=== PATIENT | female | born 1935 | race Caucasian/White ===

== ENCOUNTER 2016-11-16 08:29 | Emergency (ER) | payer OTHER, MEDICARE ==
[~2016-11-16] VITALS: Ht 160 cm; Wt 70.5 kg
[~2016-11-16 08:29] MED LIST: ASCA500 PO; CYAN500T PO; CZR25 PO; GING1CAP PO; IBUP-1050 PO; LANS15CA6 PO; OLIV1OIL5 PO; TURM1CAP2 PO; VITA1CAP5 PO
[2016-11-16 08:32] VITALS: TEMP 36.4; Ht 160 cm; Wt 70.5 kg
--- NOTE | 2016-11-16 09:23 | DIAGNOSTIC IMAGING REPORT ---
CHEST ONE VIEW PORTABLE HISTORY: Atypical chest pain COMPARISON: Chest 08/11/2015. FINDINGS: The lungs are clear. Cardiac silhouette is normal in size. No pleural effusions. No pneumothorax. IMPRESSION: No acute process. Electronically signed by: Bernard Benson M.D. 11/16/2016 9:22 AM Dictated Date/Time: 11/16/2016 9:19 AM
[2016-11-16 09:24] LABS: MEAN CELL VOLUME 91.1 fL (80-100); MEAN CORPUSCULAR HEMOGLOBIN 31.2 pg (25-34); MEAN CORPUSCULAR HGB CONC 34.2 g/dl (32-36); MEAN PLATELET VOLUME 10.3 fL (7.4-10.4); PLATELET COUNT 283 K/uL (130-400); RED BLOOD COUNT 4.17 M/uL (4.2-5.4); WHITE BLOOD COUNT 4.21 K/uL (4.8-10.8)
[2016-11-16 09:33] LABS: PROTHROMBIN TIME (PATIENT) 10.2 SECONDS (9.0-12.0)
[2016-11-16] MEDS ORDERED: SUCRALFATE 1 GM TAB PO STA (09:37)
[2016-11-16] MEDS ORDERED: GI COCKTAIL PO STA (09:37)
[2016-11-16 09:39] LABS: BUN/CREATININE RATIO 13.2 (10-20); CREATININE 0.82 mg/dl (0.60-1.20); POTASSIUM 4.4 mmol/L (3.5-5.1)
[2016-11-16] MEDS ORDERED: FAMOTIDINE 20 MG TAB PO ONE (09:45)
[2016-11-16] MEDS ORDERED: ACET-1175 PO (09:55)
--- NOTE | 2016-11-16 10:01 | EMERGENCY ROOM VISIT NOTE ---
History Report prepared by Narcisa: Alin Enrique Under the Supervision of: Dr. Bradley Chauhan M.D. First contact with patient: 09:14 Chief Complaint: CARDIAC ASSESSMENT Stated Complaint: CARDIAC ASSESSMENT Nursing Triage Summary: pt to the ED with left sided chest pain no dizziness no n/v History of Present Illness The patient is a 81 year old female who presents to the Emergency Room with complaints of constant chest pain starting around 0300 this morning. She currently rates her discomfort as a 4.5/10 in severity. The patient states that she woke up at 0300 with chest pain and abdominal pain so she ate come peaches, yogurt, and goats milk, and the pain persisted. The patient additionally complains of abdominal pain starting the same time, and she states that this has been going on for many years. The patient states that she has been scoped three different times, and nothing has been found. The patient states that she takes Prilosec, and this has not helped. The patient additionally states that she has a pinched nerve in her neck. Source of History: patient Onset: 0300 Position: chest Symptom Intensity: 4.5/10 Timing: constant Associated Symptoms: + abdominal pain Review of Systems See HPI for pertinent positives & negatives. A total of 10 systems reviewed and were otherwise negative. Past Medical & Surgical Medical Problems: (1) GERD (gastroesophageal reflux disease) (2) hemrrhoids (3) Pneumonia (4) ulcers Family History Cancer Gallbladder disease Hypertension Social History Smoking Status: Never Smoker Drug Use: none Marital Status: Housing Status: lives with family Occupation Status: unemployed Current/Historical Medications Scheduled Acetaminophen (Tylenol), 650 MG PO TID Ascorbic Acid (Vitamin C), 500 MG PO DAILY Cyanocobalamin (Vitamin B-12), 500 MCG PO DAILY Radha (Zingiber Officinalis) (Radha), 1 CAP PO DAILY Lansoprazole (Prevacid), 15 MG PO DAILY [place] Oil (Fairview Oil), 1 DOSE PO BID Allergies Coded Allergies: Latex1 -Allergic Contact Dermititis (Verified Allergy, Intermediate, RASH , 11/16/16) Caffeine (Unverified Allergy, Mild, 11/16/16) Clavulanic Acid (Unverified Allergy, Mild, 11/16/16) Gabapentin (Unverified Allergy, Mild, 11/16/16) Methadone (Unverified Allergy, Mild, 11/16/16) Niacin (Unverified Allergy, Mild, 11/16/16) Nitrates, Organic (Unverified Allergy, Mild, RASH, 11/16/16) Nitrofurantoin (Unverified Allergy, Mild, RASH, 11/16/16) Quinolones (Unverified Allergy, Mild, 11/16/16) Simvastatin (Unverified Allergy, Mild, 11/16/16) Tomato (Unverified Allergy, Mild, 11/16/16) Apple (Verified Allergy, Unknown, RASH, 11/16/16) Grass (Verified Allergy, Unknown, POLLEN,TREES,GALLOWAY, STRONG PERFUMES, ) [place] (Verified Allergy, Unknown, RASH, 11/16/16) [place] (Verified Allergy, Unknown, RASH, 11/16/16) Sulfa Drugs (Verified Allergy, Unknown, RASH, 11/16/16) Sulfamethoxazole (Verified Allergy, Unknown, RASH, 11/16/16) Penicillins (Unverified Adverse Reaction, Mild, YEAST INFXN; "CAN TAKE PENICILLIN IN LOW DOSES", 11/16/16) Uncoded Allergies: BETALACTAMASEIN (Allergy, Mild, 11/06/09) METAL (Allergy, Mild, 10/06/07) Physical Exam Vital Signs Date Time Temp Pulse Resp B/P Pulse Ox O2 Delivery O2 Flow Rate FiO2 11/16/16 12:38 71 18 167/81 11/16/16 11:00 66 18 186/83 98 Room Air 11/16/16 08:57 69 11/16/16 08:55 72 169/131 98 11/16/16 08:37 95 Room Air 11/16/16 08:32 36.4 85 18 155/74 95 Room Air Physical Exam GENERAL: Patient is a healthy-appearing well-nourished HEAD: Normocephalic atraumatic EYES: Ocular movements intact pupils equal and react to light OROPHARYNX mucous membranes are moist no exudates present no erythema or edema present NECK: Supple no nuchal rigidity CHEST: Good equal expansion LUNGS: Clear and equal to auscultation CARDIAC: Normal S1 and S2 ABDOMEN: Soft nontender no guarding BACK: No CVA tenderness EXTREMITIES: No pain upon palpation normal muscle strength in all groups no clubbing cyanosis or edema NEURO: Patient is following commands is answering questions appropriately. Alert and oriented x3 Cranial Nerves 2-12 grossly intact Medical Decision & Procedures ER Provider Diagnostic Interpretation: X-ray results as stated below per interpretation by me and the radiologist: CHEST ONE VIEW PORTABLE HISTORY: Atypical chest pain COMPARISON: Chest 08/11/2015. FINDINGS: The lungs are clear. Cardiac silhouette is normal in size. No pleural effusions. No pneumothorax. IMPRESSION: No acute process. Electronically signed by: Bernard Benson M.D. 11/16/2016 9:22 AM Laboratory Results 11/16/16 09:13 11/16/16 09:13 Test 11/16/16 09:13 11/16/16 09:18 Red Blood Count 4.17 M/uL (4.2-5.4) Mean Corpuscular Volume 91.1 fL (80-100) Mean Corpuscular Hemoglobin 31.2 pg (25-34) Mean Corpuscular Hemoglobin Concent 34.2 g/dl (32-36) RDW Standard Deviation 44.5 fL (36.4-46.3) RDW Coefficient of Variation 13.5 % (11.5-14.5) Mean Platelet Volume 10.3 fL (7.4-10.4) Prothrombin Time 10.2 SECONDS (9.0-12.0) Prothromb Time International Ratio 1.0 (0.9-1.1) Activated Partial Thromboplast Time 25.9 SECONDS (21.0-31.0) Partial Thromboplastin Ratio 1.0 Anion Gap 9.0 mmol/L (3-11) Est Creatinine Clear Calc Drug Dose 49.8 ml/min Estimated GFR () 77.2 Estimated GFR (Non- 66.6 BUN/Creatinine Ratio 13.2 (10-20) Calcium Level 9.0 mg/dl (8.5-10.1) Total Bilirubin 0.5 mg/dl (0.2-1) Aspartate Amino Transf (AST/SGOT) 21 U/L (15-37) Alanine Aminotransferase (ALT/SGPT) 28 U/L (12-78) Alkaline Phosphatase 71 U/L (45-117) Total Creatine Kinase 45 U/L (26-192) Creatine Kinase MB 0.9 ng/ml (0.5-3.6) Creatine Kinase MB Ratio 2.0 (0-3.0) Total Protein 7.3 gm/dl (6.4-8.2) Albumin 3.7 gm/dl (3.4-5.0) Globulin 3.6 gm/dl (2.5-4.0) Albumin/Globulin Ratio 1.0 (0.9-2) Bedside Troponin I 0.010 ng/ml (0-0.045) Labs reviewed by ED physician. Medications Administered Medications (Trade) Dose Ordered Sig/Kyung Route Start Time Stop Time Status Last Admin Dose Admin Famotidine (Pepcid Tab) 20 mg NOW ONCE PO 11/16/16 09:45 11/16/16 09:46 DC 11/16/16 10:09 20 MG Sucralfate (Carafate Tab) 1 gm NOW STAT PO 11/16/16 09:37 11/16/16 09:38 DC 11/16/16 10:10 1 GM Miscellaneous Medication (Gi Cocktail) 24 ml NOW STAT PO 11/16/16 09:37 11/16/16 09:38 DC 11/16/16 10:16 24 ML ECG Indication: chest pain Rate (beats per minute): 76 Rhythm: normal sinus Findings: LBBB Comparison ECG Date: 03/13/16 Change: no significant change ED Course 0914: Past medical records reviewed. The patient was evaluated in room C1. A complete history and physical examination was performed. 0937: GI Cocktail 24ml PO, Carafate Tab 1gm PO 0945: Pepcid Tav 20mg PO 1232: Upon reexamination the patient is feeling better. I discussed results and treatment plan with the patient. She verbalizes agreement and understanding. The patient is ready for discharge. Medical Decision Differential diagnosis: Etiologies such as cardiac ischemia, aortic dissection, pulmonary embolism, pneumonia, pneumothorax, musculoskeletal, infections, pericarditis, myocarditis , esophageal rupture, gastrointestinal, as well as others were entertained. This is an 81-year-old female who presents emergency Department with epigastric pain that has been ongoing for months. The patient relates the pain to eating. She has been scoped in the past and feels that this is similar to those incidents. For this reason the patient was given a GI cocktail, Pepcid, Carafate. Repeat examination revealed improvement patient's symptoms. Impression Primary Impression: GERD (gastroesophageal reflux disease) Scribe Attestation The scribe's documentation has been prepared under my direction and personally reviewed by me in its entirety. I confirm that the note above accurately reflects all work, treatment, procedures, and medical decision making performed by me. Departure Information Dispostion Home / Self-Care Referrals Alex Bates M.D. (PCP) Forms IMPORTANT VISIT INFORMATION Patient Instructions Acid Reflux, ED Diet Clear Liquid, My [facility] Additional Instructions Follow up with gastroentrologist Dr Rodriguez Clear liquid diet next 48 hours Take 5 ml Maalox before every meal and at bedtime You have been examined and treated today on an emergency basis only. This is not a substitute for, or an effort to provide, complete comprehensive medical care. It is impossible to recognize and treat all injuries or illnesses in a single emergency department visit. It is therefore important that you follow up closely with Dr Bates. Call as soon as possible for an appointment. Thank you for your time and consideration. I look forward to speaking with you again soon. Please don't hesitate to call us if you have any questions. Problem Qualifiers Primary Impression: GERD (gastroesophageal reflux disease) Esophagitis presence: with esophagitis Qualified Codes: K21.0 - Gastro- esophageal reflux disease with esophagitis
[2016-11-16] MEDS ORDERED: ALUMINUM/MAGNESIUM SUSP 30 ML UDC ONE (10:02)
[2016-11-16] MEDS ORDERED: LIDOCAINE HCL 2% VISC SOLN 20 ML UDC ONE (10:02)
[2016-11-16] MEDS ORDERED: ONDANSETRON INJ 2 MG/ML 2 ML VIAL IV STA (10:22)
[2016-11-16] MEDS ORDERED: MoRPHine SULFATE 4 MG/ML 1 ML CARP\\VIAL IV STA (10:22)
[2016-11-16 11:00] VITALS: O2SAT 98
[2016-11-16 12:38] VITALS: BP 167/81; PULSE 71
[2016-12-07] MEDS ORDERED: ALUMSUS2 PO (10:07)
[2017-01-19] MEDS ORDERED: PSEU30TA20 PO (14:22)
== END 2016-11-16 12:40 | disposition home or self-care (01) ==
LOC: C.EDB 08:32 → C.EDC 12:40
DX: K21.9 Gastro-esophageal reflux disease without esophagitis (principal); R10.13 Epigastric pain; I44.7 Left bundle-branch block, unspecified; Z79.899 Other long term (current) drug therapy; Z88.0 Allergy status to penicillin; Z88.2 Allergy status to sulfonamides; Z88.8 Allergy status to other drugs, medicaments and biological substances; Z91.040 Latex allergy status; Z80.9 Family history of malignant neoplasm, unspecified; Z83.79 Family history of other diseases of the digestive system; Z82.49 Family history of ischemic heart disease and other diseases of the circulatory system

== ENCOUNTER 2016-12-01 23:56 | Emergency (ER) | payer OTHER, MEDICARE ==
[~2016-12-01] VITALS: Ht 160 cm; Wt 69.9 kg
[~2016-12-01 23:56] MED LIST changes: +ACET-1175 PO; -CZR25 PO; -IBUP-1050 PO; -TURM1CAP2 PO; -VITA1CAP5 PO
[2016-12-01 23:57] VITALS: TEMP 36.8; Ht 160 cm; Wt 69.9 kg
[2016-12-02] MEDS ORDERED: ONDANSETRON 4MG OD TAB PO STA (00:11)
[2016-12-02] MEDS ORDERED: GI COCKTAIL PO STA (00:11)
[2016-12-02] MEDS ORDERED: FAMOTIDINE 20 MG TAB PO ONE (00:15)
--- NOTE | 2016-12-02 00:18 | EMERGENCY ROOM VISIT NOTE ---
History Report prepared by Narcisa: Fanny Acosta Under the Supervision of: Dr. Eamon Win M.D. 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 The patient has been experiencing nausea, vomiting, and diarrhea for the past 7 hours. She states that after vomiting she developed some central chest pain. The patient rates her pain as an 8/10 in severity. She has a history of GERD and takes Prevacid BID and Nexium. She has not had an endoscopy in the past 20 years. She states that tonight's symptoms feel similar to previous episodes of exacerbation of her GERD. She tried taking Maalox and drinking gingerale without any relief of her symptoms. She reports some pain that is worse with swallowing. The patient denies shortness of breath, black or bloody stools, swelling in her legs, and any recent trauma or falls. She denies any sick contacts. The patient reports some stress recently. Tomorrow is the 2 year anniversary of her 's . 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 A total of 10 systems reviewed and were otherwise negative. Past Medical & Surgical Medical Problems: (1) GERD (gastroesophageal reflux disease) (2) hemrrhoids (3) Pneumonia (4) ulcers Family History Cancer Gallbladder disease Hypertension Social History Smoking Status: Never Smoker Drug Use: none Marital Status: Housing Status: lives with family Occupation Status: unemployed Current/Historical Medications Scheduled Acetaminophen (Tylenol), 650 MG PO TID Ascorbic Acid (Vitamin C), 1,000 MG PO DAILY Cyanocobalamin (Vitamin B-12), 500 MCG PO DAILY Radha (Zingiber Officinalis) (Radha), 1 CAP PO DAILY Lansoprazole (Prevacid), 15 MG PO DAILY Losartan Potassium (Losartan Potassium), 25 MG PO DAILY [place] Oil (Archer Oil), 1 DOSE PO BID Pregabalin (Lyrica), 50 MG PO BID Ranitidine HCl (Ranitidine HCl), 150 MG PO HS Scheduled PRN Lidocaine Hcl (Mouth-Throat) (Lidocaine Viscous), 10 ML PO BID PRN for Pain Allergies Coded Allergies: Latex1 -Allergic Contact Dermititis (Verified Allergy, Intermediate, RASH , 12/02/16) Caffeine (Unverified Allergy, Mild, 12/02/16) Clavulanic Acid (Unverified Allergy, Mild, 12/02/16) Gabapentin (Unverified Allergy, Mild, 12/02/16) Methadone (Unverified Allergy, Mild, 12/02/16) Niacin (Unverified Allergy, Mild, 12/02/16) Nitrates, Organic (Unverified Allergy, Mild, RASH, 12/02/16) Nitrofurantoin (Unverified Allergy, Mild, RASH, 12/02/16) Quinolones (Unverified Allergy, Mild, 12/02/16) Simvastatin (Unverified Allergy, Mild, 12/02/16) Tomato (Unverified Allergy, Mild, 12/02/16) Apple (Verified Allergy, Unknown, RASH, 12/02/16) Grass (Verified Allergy, Unknown, POLLEN,TREES,GALLOWAY, STRONG PERFUMES, ) [place] (Verified Allergy, Unknown, RASH, 12/02/16) [place] (Verified Allergy, Unknown, RASH, 12/02/16) Sulfa Drugs (Verified Allergy, Unknown, RASH, 12/02/16) Sulfamethoxazole (Verified Allergy, Unknown, RASH, 12/02/16) Penicillins (Unverified Adverse Reaction, Mild, YEAST INFXN; "CAN TAKE PENICILLIN IN LOW DOSES", 12/02/16) Uncoded Allergies: BETALACTAMASEIN (Allergy, Mild, 11/06/09) METAL (Allergy, Mild, 10/06/07) Physical Exam Vital Signs Date Time Temp Pulse Resp B/P Pulse Ox O2 Delivery O2 Flow Rate FiO2 12/02/16 01:25 87 20 163/86 96 12/02/16 00:19 Room Air 12/02/16 00:10 80 12/01/16 23:57 36.8 92 20 141/85 100 Room Air Physical Exam GENERAL: Patient is well appearing and in minimal distress. HEENT: No acute trauma, normocephalic atraumatic, mucous membranes moist, no nasal congestion, no scleral icterus. NECK: No stridor, no adenopathy, no meningismus, trachea is midline. LUNGS: No dyspnea. Clear to auscultation and equal bilaterally. No wheeze, no rhonchi. HEART: Regular rate and rhythm. No murmurs, rubs, gallops appreciated. ABDOMEN: Soft with vague epigastric tenderness to palpation, bowel sounds positive, no masses appreciated, no peritonitis. BACK: No midline tenderness, no CVA tenderness EXTREMITIES: Normal motion all extremities, no cyanosis, no edema. NEUROLOGIC: Alert and oriented, no acute motor or sensory deficits, no focal weakness, cranial nerves grossly intact. SKIN: No rash, no jaundice, no diaphoresis. Medical Decision & Procedures ER Provider Diagnostic Interpretation: One view chest x-ray as interpreted by myself reveals poor inspiratory effort, no infiltrate, no pneumothorax, no effusion, similar to previous CXR. Laboratory Results 12/02/16 00:16 Red Blood Count 4.24, Mean Corpuscular Volume 90.1, Mean Corpuscular Hemoglobin 30.9, Mean Corpuscular Hemoglobin Concent 34.3, Mean Platelet Volume 10.5, Neutrophils (%) (Auto) 75.7, Lymphocytes (%) (Auto) 17.7, Monocytes (%) (Auto) 5.0, Eosinophils (%) (Auto) 1.4, Basophils (%) (Auto) 0.1, Neutrophils # (Auto) 7.55, Lymphocytes # (Auto) 1.77, Monocytes # (Auto) 0.50, Eosinophils # (Auto) 0.14, Basophils # (Auto) 0.01 12/02/16 00:16 Test 12/02/16 00:16 White Blood Count 9.98 K/uL (4.8-10.8) Red Blood Count 4.24 M/uL (4.2-5.4) Hemoglobin 13.1 g/dL (12.0-16.0) Hematocrit 38.2 % (37-47) Mean Corpuscular Volume 90.1 fL (80-100) Mean Corpuscular Hemoglobin 30.9 pg (25-34) Mean Corpuscular Hemoglobin Concent 34.3 g/dl (32-36) Platelet Count 277 K/uL (130-400) Mean Platelet Volume 10.5 fL (7.4-10.4) Neutrophils (%) (Auto) 75.7 % Lymphocytes (%) (Auto) 17.7 % Monocytes (%) (Auto) 5.0 % Eosinophils (%) (Auto) 1.4 % Basophils (%) (Auto) 0.1 % Neutrophils # (Auto) 7.55 K/uL (1.4-6.5) Lymphocytes # (Auto) 1.77 K/uL (1.2-3.4) Monocytes # (Auto) 0.50 K/uL (0.11-0.59) Eosinophils # (Auto) 0.14 K/uL (0-0.5) Basophils # (Auto) 0.01 K/uL (0-0.2) RDW Standard Deviation 42.8 fL (36.4-46.3) RDW Coefficient of Variation 13.0 % (11.5-14.5) Immature Granulocyte % (Auto) 0.1 % Immature Granulocyte # (Auto) 0.01 K/uL (0.00-0.02) Anion Gap 11.0 mmol/L (3-11) Est Creatinine Clear Calc Drug Dose 49.6 ml/min Estimated GFR () 77.2 Estimated GFR (Non- 66.6 BUN/Creatinine Ratio 17.0 (10-20) Calcium Level 8.8 mg/dl (8.5-10.1) Total Bilirubin 0.7 mg/dl (0.2-1) Aspartate Amino Transf (AST/SGOT) 22 U/L (15-37) Alanine Aminotransferase (ALT/SGPT) 26 U/L (12-78) Alkaline Phosphatase 70 U/L (45-117) Total Creatine Kinase 58 U/L (26-192) Creatine Kinase MB 1.0 ng/ml (0.5-3.6) Creatine Kinase MB Ratio 1.7 (0-3.0) Troponin I < 0.015 ng/ml (0-0.045) Total Protein 7.5 gm/dl (6.4-8.2) Albumin 4.0 gm/dl (3.4-5.0) Globulin 3.5 gm/dl (2.5-4.0) Albumin/Globulin Ratio 1.1 (0.9-2) Lipase 209 U/L (73-393) Laboratory results as reviewed by me. Medications Administered Medications (Trade) Dose Ordered Sig/Kyung Route Start Time Stop Time Status Last Admin Dose Admin Famotidine (Pepcid Tab) 20 mg NOW ONCE PO 12/02/16 00:15 12/02/16 00:16 DC 12/02/16 00:30 20 MG Ondansetron HCl (Zofran Odt) 4 mg NOW STAT PO 12/02/16 00:11 12/02/16 00:13 DC 12/02/16 00:29 4 MG Al Hydroxide/Mg Hydroxide (Maalox Susp) 30 ml STK-MED ONCE .ROUTE 12/02/16 00:24 12/02/16 00:27 DC 12/02/16 00:24 30 ML Lidocaine HCl (Viscous Lidocaine 2% Soln) 20 ml STK-MED ONCE .ROUTE 12/02/16 00:24 12/02/16 00:27 DC 12/02/16 00:24 20 ML Ondansetron HCl (ZOFRAN ODT 4MG Home Pack) 1 homepack UD ONCE PO 12/02/16 01:00 12/02/16 01:01 DC 12/02/16 01:14 1 HOMEPACK ECG Indication: chest pain Rate (beats per minute): 73 Rhythm: normal sinus Findings: LBBB, no acute ischemic change, no ectopy Comparison ECG Date: 11/16/2016 Change: no significant change ED Course 0006: The patient was evaluated in room B9. A complete history and physical exam was performed. 0011: Zofran 4 mg PO, GI Cocktail 24 ml PO 0015: Pepcid tab 20 mg PO 0051: I reassessed the patient at this time. She is feeling better and resting comfortably. She has had complete resolution of her symptoms. I discussed the results and treatment plan with the patient. I answered all pertaining questions that she had. She expressed understanding and verbalized agreement. The patient will be discharged home. 0100: Zofran 4 mg PO 1 homepack Medical Decision Differential: Cholecystitis, Gallbladder disfunction, Hepatic Disfunction, Gastritis/PUD, Pancreatitis, ACS, Aortic Pathology, amongst other pathologies entertained. 81 yr old female with long (>40yr) history of GERD which she arrives today stating she is having flare of. States identical to previous symptoms that have brought her to hospital. Makes clear this is not her heart. Current symptoms ongoing since yesterday afternoon, worsened by vomiting. 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 Has not had endoscopy (per her and daughter) in 20 years. She has complete resolution of symptoms with above. She is currently in no distress and feeling well. EKG, CXR, labs unremarkable. With normal Trop after prolonged symptoms I do not feel this represents ACS. 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 RTED if worsening or change in symptoms. No evidence of aortic, liver, nor other pathology. Impression Primary Impression: Gastritis Additional Impressions: GERD (gastroesophageal reflux disease) Vomiting Scribe Attestation The scribe's documentation has been prepared under my direction and personally reviewed by me in its entirety. I confirm that the note above accurately reflects all work, treatment, procedures, and medical decision making performed by me. Departure Information Dispostion Home / Self-Care Prescriptions Lidocaine Hcl (Mouth-Throat) (LIDOCAINE VISCOUS) 2 % Natalie 10 ML PO BID Y for Pain, #100 ML Prov: Eamon Win M.D. 12/02/16 Referrals Alex Bates M.D. (PCP) Forms HOME CARE DOCUMENTATION FORM, IMPORTANT VISIT INFORMATION Patient Instructions ED GERD, My [facility] Additional Instructions Please take two doses (one in morning, and one in evening) of your Nexium daily for the next 7 to 10 days. Follow up with your primary care provider and discuss follow up with Gastroenterology. Problem Qualifiers Primary Impression: Gastritis Gastritis type: unspecified gastritis Chronicity: chronic Gastritis bleeding: without bleeding Qualified Codes: K29.50 - Unspecified chronic gastritis without bleeding Additional Impressions: GERD (gastroesophageal reflux disease) Esophagitis presence: with esophagitis Qualified Codes: K21.0 - Gastro- esophageal reflux disease with esophagitis Vomiting Vomiting type: unspecified Vomiting Intractability: non-intractable Nausea presence: with nausea Qualified Codes: R11.2 - Nausea with vomiting, unspecified
[2016-12-02] MEDS ORDERED: LIDOCAINE HCL 2% VISC SOLN 20 ML UDC ONE (00:24)
[2016-12-02] MEDS ORDERED: ALUMINUM/MAGNESIUM SUSP 30 ML UDC ONE (00:24)
[2016-12-02 00:26] LABS: BASO % 0.1 %; BASO ABS # 0.01 K/uL (0-0.2); COMPLETE YES; EOS % 1.4 %; HEMATOCRIT 38.2 % (37-47); IG% 0.1 %; LYMPH % 17.7 %; LYMPH ABS # 1.77 K/uL (1.2-3.4); MEAN CELL VOLUME 90.1 fL (80-100); MEAN CORPUSCULAR HEMOGLOBIN 30.9 pg (25-34); MEAN CORPUSCULAR HGB CONC 34.3 g/dl (32-36); MEAN PLATELET VOLUME 10.5 fL (7.4-10.4); NEUT % 75.7 %; PLATELET COUNT 277 K/uL (130-400); RED BLOOD COUNT 4.24 M/uL (4.2-5.4); WHITE BLOOD COUNT 9.98 K/uL (4.8-10.8)
[2016-12-02 00:41] LABS: ALT/SGPT 26 U/L (12-78); AST/SGOT 22 U/L (15-37); BLOOD UREA NITROGEN 14 mg/dl (7-18); CALCIUM 8.8 mg/dl (8.5-10.1); CARBON DIOXIDE 26 mmol/L (21-32); CHLORIDE 99 mmol/L (98-107); CREATININE 0.82 mg/dl (0.60-1.20); GLUCOSE 114 mg/dl (70-99); POTASSIUM 3.7 mmol/L (3.5-5.1); SODIUM 136 mmol/L (136-145)
[2016-12-02 00:46] LABS: ALB/GLOB RATIO 1.1 (0.9-2); ALKALINE PHOSPHATASE 70 U/L (45-117); CKMB/CK RATIO 1.7 (0-3.0)
[2016-12-02] MEDS ORDERED: RANI150T2 PO (00:57)
[2016-12-02] MEDS ORDERED: CZR25 PO (00:57)
[2016-12-02] MEDS ORDERED: LYR50 PO (00:59)
[2016-12-02] MEDS ORDERED: ONDANSETRON HOME PACK 4MG OD TAB PO ONE (01:00)
[2016-12-02] MEDS ORDERED: LIDO2SOL19 PO (01:02)
[2016-12-02 01:25] VITALS: BP 163/86; PULSE 87; O2SAT 96
--- NOTE | 2016-12-02 07:08 | DIAGNOSTIC IMAGING REPORT ---
CHEST ONE VIEW PORTABLE CLINICAL HISTORY: Atypical chest pain COMPARISON STUDY: 11/16/2016 FINDINGS: The cardiac and mediastinal contours are normal. There is no evidence of focal pulmonary consolidation. There is no evidence of failure. No pleural effusions are visualized.[ There are minor left basilar atelectatic changes. IMPRESSION: Minor left basilar atelectasis. No evidence of lobar consolidation. No evidence of failure. Electronically signed by: Uli Diaz M.D. 12/02/2016 7:07 AM Dictated Date/Time: 12/02/2016 7:07 AM
[2016-12-07] MEDS ORDERED: ALUMSUS2 PO (10:07)
[2017-01-19] MEDS ORDERED: PSEU30TA20 PO (14:22)
== END 2016-12-02 01:27 | disposition home or self-care (01) ==
LOC: C.EDB 23:57
DX: K29.50 Unspecified chronic gastritis without bleeding (principal); K21.0 Gastro-esophageal reflux disease with esophagitis; R11.2 Nausea with vomiting, unspecified; Z79.899 Other long term (current) drug therapy; Z82.49 Family history of ischemic heart disease and other diseases of the circulatory system

== ENCOUNTER → 2016-12-12 | Day surgery (SDC) | payer OTHER, MEDICARE ==
[2016-12-07 10:07] VITALS: BMI 28.0
[~2016-12-12] VITALS: Ht 157.5 cm; Wt 70.0 kg
[~2016-12-12] MED LIST changes: +ALUMSUS2 PO; +CZR25 PO; +FENTANYL CITRATE INJ 50 MCG/1 ML 2 ML VIAL ONE; -GING1CAP PO; +LIDO2SOL19 PO; +LIDOCAINE HCL 2% 2 ML VIAL (20MG/ML) ONE; +PROPOFOL IV EMULSION 10 MG/ML 20 ML VIAL IV ONE; +PSEU30TA20 PO; +RANI150T2 PO; +SODIUM CHLORIDE 0.9% 500ML 500 ML IV ONE
[2016-12-12 11:25] VITALS: Ht 157.5 cm; Wt 70.0 kg
--- NOTE | 2016-12-12 11:54 | Endo History and Physical ---
History & Physical Date of Service: Dec 12, 2016. Chief Complaint: dysphagia, vomiting Referring Physician: Dr. Bates History of Present Illness 81 yo CF who presents for EGD secondary to dysphagia and vomiting. Past Medical History Arthritis, Asthma, Reflux, Hypertension, Depression Past Surgical History Hx Cardiac Surgery: No Hx Internal Defibrillator: No Hx Pacemaker: No Hx Abdominal Surgery: Yes (HANNAH, ROSELIA) Hx of Implantable Prosthesis: No Hx Post-Op Nausea and Vomiting: Yes Hx Cancer Surgery: No Hx Thoracic Surgery: No Hx Orthopedic: No Hx Urinary Tract Surgery: Yes (PELVIC/BLADDER REPAIR "COUPLE TIMES") Family History Colon CA, Esophogeal CA, Polyp, IBD Social History Smoking Status: Never Smoker Hx Substance Use: No Hx Alcohol Use: Yes (RARELY) Allergies Coded Allergies: Latex1 -Allergic Contact Dermititis (Verified Allergy, Intermediate, RASH , 12/12/16) Caffeine (Unverified Allergy, Mild, HYPER-INCREASED HEARTBEAT, 12/12/16) Clavulanic Acid (Unverified Allergy, Mild, RASH, 12/12/16) Gabapentin (Unverified Allergy, Mild, RASH, 12/12/16) Methadone (Unverified Allergy, Mild, RASH, 12/12/16) Niacin (Unverified Allergy, Mild, RASH, 12/12/16) Nitrates, Organic (Unverified Allergy, Mild, RASH, 12/12/16) Nitrofurantoin (Unverified Allergy, Mild, RASH, 12/12/16) Quinolones (Unverified Allergy, Mild, RASH, 12/12/16) Simvastatin (Unverified Allergy, Mild, RASH, 12/12/16) Tomato (Unverified Allergy, Mild, UPSET STOMACH, 12/12/16) Apple (Verified Allergy, Unknown, RASH, 12/12/16) Grass (Verified Allergy, Unknown, POLLEN,TREES,GALLOWAY, STRONG PERFUMES, ) [place] (Verified Allergy, Unknown, RASH, 12/12/16) [place] (Verified Allergy, Unknown, RASH, 12/12/16) Sulfa Drugs (Verified Allergy, Unknown, RASH, 12/12/16) Sulfamethoxazole (Verified Allergy, Unknown, RASH, 12/12/16) Penicillins (Unverified Adverse Reaction, Mild, YEAST INFXN; "CAN TAKE PENICILLIN IN LOW DOSES", 12/12/16) Uncoded Allergies: METAL (Allergy, Mild, RASH, 12/07/16) Current Medications Reported Home Medications Medications Dose Route/Sig Max Daily Dose Days Date Category Maalox Max Susp (Al Hydrox/Mg Hydrox/Simethicone) Susp 5 Ml PO QID PRN 12/07/16 Reported Lidocaine Viscous (Lidocaine Hcl (Mouth-Throat)) 2 % Natalie 10 Ml PO BID PRN 12/02/16 Rx Ranitidine HCl 150 Mg Tab 150 Mg PO BID 12/02/16 Reported Losartan Potassium 25 Mg Tab 25 Mg PO QAM 12/02/16 Reported Tylenol (Acetaminophen) 325 Mg Tab 650 Mg PO TID 11/16/16 Reported [place] Oil 1 Oil Oil 1 Dose PO QAM 06/30/16 Reported Prevacid (Lansoprazole) 15 Mg Capcr 15 Mg PO QAM 02/18/15 Reported Vitamin C (Ascorbic Acid) 500 Mg Tab 500 Mg PO BID 02/18/15 Reported Vitamin B-12 (Cyanocobalamin) 500 Mcg Tab 500 Mcg PO QAM 02/18/15 Reported Vital Signs Weight (Kilograms): 70.00 Height (Feet): 5 Height (Inches): 2 Date Time Temp Pulse Resp B/P Pulse Ox O2 Delivery O2 Flow Rate FiO2 12/12/16 11:35 36.6 84 20 170/73 98 Room Air Physical Exam General Appearance: WD/WN, no apparent distress Respiratory/Chest: Auscultation: breath sounds normal Cardiovascular: Heart Auscultation: RRR Abdomen: Bowel Sounds: normal Inspection & Palpation: soft, non-distended, no tenderness, guarding & rebound Assessment and Plan Assessment: 81 yo CF who presents for EGD secondary to dysphagia and vomiting. Plan: Proceed with EGD.
--- NOTE | 2016-12-12 12:04 | Discharge Instructions ---
Endoscopy Patient Instructions Date / Procedure(s) Performed Dec 12, 2016. EGD Allergy Information Coded Allergies: Latex1 -Allergic Contact Dermititis (Verified Allergy, Intermediate, RASH , 12/12/16) Caffeine (Unverified Allergy, Mild, HYPER-INCREASED HEARTBEAT, 12/12/16) Clavulanic Acid (Unverified Allergy, Mild, RASH, 12/12/16) Gabapentin (Unverified Allergy, Mild, RASH, 12/12/16) Methadone (Unverified Allergy, Mild, RASH, 12/12/16) Niacin (Unverified Allergy, Mild, RASH, 12/12/16) Nitrates, Organic (Unverified Allergy, Mild, RASH, 12/12/16) Nitrofurantoin (Unverified Allergy, Mild, RASH, 12/12/16) Quinolones (Unverified Allergy, Mild, RASH, 12/12/16) Simvastatin (Unverified Allergy, Mild, RASH, 12/12/16) Tomato (Unverified Allergy, Mild, UPSET STOMACH, 12/12/16) Apple (Verified Allergy, Unknown, RASH, 12/12/16) Grass (Verified Allergy, Unknown, POLLEN,TREES,GALLOWAY, STRONG PERFUMES, ) [place] (Verified Allergy, Unknown, RASH, 12/12/16) [place] (Verified Allergy, Unknown, RASH, 12/12/16) Sulfa Drugs (Verified Allergy, Unknown, RASH, 12/12/16) Sulfamethoxazole (Verified Allergy, Unknown, RASH, 12/12/16) Penicillins (Unverified Adverse Reaction, Mild, YEAST INFXN; "CAN TAKE PENICILLIN IN LOW DOSES", 12/12/16) Uncoded Allergies: METAL (Allergy, Mild, RASH, 12/07/16) Discharge Date / Findings Dec 12, 2016. Hiatal hernia Medication Instructions OK to resume all medications today as prescribed Reported Home Medications Medications Dose Route/Sig Max Daily Dose Days Date Category Maalox Max Susp (Al Hydrox/Mg Hydrox/Simethicone) Susp 5 Ml PO QID PRN 12/07/16 Reported Lidocaine Viscous (Lidocaine Hcl (Mouth-Throat)) 2 % Natalie 10 Ml PO BID PRN 12/02/16 Rx Ranitidine HCl 150 Mg Tab 150 Mg PO BID 12/02/16 Reported Losartan Potassium 25 Mg Tab 25 Mg PO QAM 12/02/16 Reported Tylenol (Acetaminophen) 325 Mg Tab 650 Mg PO TID 11/16/16 Reported [place] Oil 1 Oil Oil 1 Dose PO QAM 06/30/16 Reported Prevacid (Lansoprazole) 15 Mg Capcr 15 Mg PO QAM 02/18/15 Reported Vitamin C (Ascorbic Acid) 500 Mg Tab 500 Mg PO BID 02/18/15 Reported Vitamin B-12 (Cyanocobalamin) 500 Mcg Tab 500 Mcg PO QAM 02/18/15 Reported Provider Instructions Activity Restrictions - No exercising or heavy lifting for 24 hours. - Do not drink alcohol the day of the procedure. - Do not drive a car or operate machinery until the day after the procedure. - Do not make any important decisions or sign important papers in 24 hours after the procedure. Following Day: - Return to full activity which may include returning to work/school. Diet Start your diet with liquids and light foods (jello, soup, juice, toast). Then eat your usual diet if not nauseated. Treatment For Common After Affects For mild abdominal pain, bloating, or excessive gas: - Rest - Eat lightly - Lie on right side Follow-Up Information Follow-up with Dr. Bates as scheduled Anesthesia Information What You Should Know You have had a procedure that required some medicine to reduce anxiety and discomfort. This treatment is called moderate sedation. After receiving the treatment, you may be sleepy, but you will be able to breathe on your own. The effects of the treatment may last for several hours. Follow these instructions along with Activity/Diet recommendations noted above: * Do NOT do anything where dizziness or clumsiness would be dangerous. * Rest quietly at home today, then you can be up and about tomorrow. * Have a responsible person stay with you the rest of today. * You may have had an I.V. today. If so, you may take the dressing off later today. Recommendations Call your doctor if: * Trouble breathing * Continuous vomiting for more than 24 hours * Temperature above 101 degrees * Severe abdominal pain or bloating * Pain not relieved by pain medicine ordered * There is increased drainage or redness from any incision * A large amount of rectal bleeding greater than 2-3 tablespoons. (If you had a polyp/s removed or have hemorrhoids, a small amount of blood - from the rectum is to be expected.) * You have any unanswered questions or concerns. IN THE EVENT OF A SERIOUS EMERGENCY, GO TO THE NEAREST EMERGENCY ROOM Your discharge instructions were prepared by provider Vinny Martin. Patient Instructions Signature Page Emi Camacho Patient (or Guardian) Signature/Date: I have read and understand the instructions given to me by my caregivers. Caregiver/RN/Doctor Signature/Date: The above-named patient and/or guardian has received patient instructions on this date. + Original Patient Signature Page (only) stays with chart. Please make copy for patient.
--- NOTE | 2016-12-12 12:10 | GI REPORT ---
Procedure Date: 12/12/2016 11:31 AM Procedure: Upper GI endoscopy Indications: Dysphagia, Gastro-esophageal reflux disease, Nausea with vomiting Medicines: Monitored Anesthesia Care Complications: No immediate complications. Estimated Blood Loss: Estimated blood loss: none. Procedure: Pre-Anesthesia Assessment: - Prior to the procedure, a History and Physical was performed, and patient medications and allergies were reviewed. The patient's tolerance of previous anesthesia was also reviewed. The risks and benefits of the procedure and the sedation options and risks were discussed with the patient. All questions were answered, and informed consent was obtained. Prior Anticoagulants: The patient has taken no previous anticoagulant or antiplatelet agents. ASA Grade Assessment: III - A patient with severe systemic disease. After reviewing the risks and benefits, the patient was deemed in satisfactory condition to undergo the procedure. After obtaining informed consent, the endoscope was passed under direct vision. Throughout the procedure, the patient's blood pressure, pulse, and oxygen saturations were monitored continuously. The On-site loaner was introduced through the mouth, and advanced to the second part of duodenum. The upper GI endoscopy was accomplished without difficulty. The patient tolerated the procedure well. Findings: No endoscopic abnormality was evident in the esophagus to explain the patient's complaint of dysphagia. It was decided, however, to proceed with dilation at the gastroesophageal junction. A TTS dilator was passed through the scope. Dilation with an 18-19-20 mm balloon (to a maximum balloon size of 20 mm) dilator was performed. The dilation site was examined and showed no change. A small hiatus hernia was present. The examined duodenum was normal. Impression: - No endoscopic esophageal abnormality to explain patient's dysphagia. Esophagus dilated. Dilated. - Small hiatus hernia. - Normal examined duodenum. - No specimens collected. Recommendation: - Resume previous diet. - Continue present medications. - Consider Barium swallow for further evaluation of dysphagia. - Return to primary care physician as previously scheduled. Vinny Martin, DO 12/12/2016 12:10:29 PM This report has been signed electronically. Note Initiated On: 12/12/2016 11:31 AM I attest to the content of the Intraoperative Record and orders documented therein, exceptions below
--- NOTE | 2016-12-12 12:20 | Anesthesiology Progress Note ---
Anesthesia Post Op Note Date & Time Dec 12, 2016 at 12:20 Vital Signs Pain Intensity: 0 Vital Signs Past 12 Hours Date Time Temp Pulse Resp B/P Pulse Ox O2 Delivery O2 Flow Rate FiO2 12/12/16 12:12 36.6 69 20 141/66 98 Room Air 12/12/16 11:35 36.6 84 20 170/73 98 Room Air Notes Mental Status: alert / awake / arousable, participated in evaluation Pt Amnestic to Procedure: Yes Nausea / Vomiting: adequately controlled Pain: adequately controlled Airway Patency, RR, SpO2: stable & adequate BP & HR: stable & adequate Hydration State: stable & adequate Anesthetic Complications: no major complications apparent
[2016-12-12 12:41] VITALS: BP 155/74; PULSE 63; O2SAT 98
== END | disposition home or self-care (01) ==
LOC: C.GI 10:51
PROVIDERS: ATTEND Internal Medicine
DX: R13.10 Dysphagia, unspecified (principal); K21.9 Gastro-esophageal reflux disease without esophagitis; K44.9 Diaphragmatic hernia without obstruction or gangrene; Z98.890 Other specified postprocedural states; Z80.0 Family history of malignant neoplasm of digestive organs; Z83.79 Family history of other diseases of the digestive system; M19.90 Unspecified osteoarthritis, unspecified site; J45.909 Unspecified asthma, uncomplicated; I10 Essential (primary) hypertension; F32.9 Major depressive disorder, single episode, unspecified; Z88.0 Allergy status to penicillin; Z88.1 Allergy status to other antibiotic agents; Z88.2 Allergy status to sulfonamides; Z88.8 Allergy status to other drugs, medicaments and biological substances

== ENCOUNTER → 2017-01-05 | Outpatient (CLI) | payer OTHER, MEDICARE ==
[~2017-01-05] MED LIST changes: -FENTANYL CITRATE INJ 50 MCG/1 ML 2 ML VIAL ONE; -LIDO2SOL19 PO; -LIDOCAINE HCL 2% 2 ML VIAL (20MG/ML) ONE; -PROPOFOL IV EMULSION 10 MG/ML 20 ML VIAL IV ONE; -SODIUM CHLORIDE 0.9% 500ML 500 ML IV ONE
--- NOTE | 2017-01-05 16:11 | DIAGNOSTIC IMAGING REPORT ---
C-SPINE ROUTINE 4 OR 5 VIEWS CLINICAL HISTORY: Progressive neck pain COMPARISON STUDY: No previous studies for comparison. FINDINGS: The prevertebral soft tissues are normal. There are advanced multilevel changes with multilevel disc space narrowing and osteophyte formation. There is moderate to marked multilevel bilateral foraminal encroachment due to uncinate spurs. No acute fractures are visualized. IMPRESSION: 1. No acute fractures 2. 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 01/05/2017 4:08 PM Dictated Date/Time: 01/05/2017 4:08 PM
== END | disposition home or self-care (01) ==
LOC: C.RADBC 15:49
PROVIDERS: ATTEND Physician Assistant Medical
DX: M54.2 Cervicalgia (principal)

== ENCOUNTER → 2017-09-04 | Outpatient (CLI) | payer OTHER, MEDICARE ==
[2017-09-04 17:55] LABS: BLOOD UREA NITROGEN 13 mg/dl (7-18); BUN/CREATININE RATIO 16.4 (10-20); CALCIUM 9.6 mg/dl (8.5-10.1); CARBON DIOXIDE 28 mmol/L (21-32); CHLORIDE 101 mmol/L (98-107); CREATININE 0.79 mg/dl (0.60-1.20); GLUCOSE 104 mg/dl (70-99); POTASSIUM 4.1 mmol/L (3.5-5.1); SODIUM 132 mmol/L (136-145)
== END | disposition home or self-care (01) ==
LOC: C.LABPVFM 11:52
PROVIDERS: ATTEND Family Medicine
DX: I10 Essential (primary) hypertension (principal)